=== PATIENT | male | born 1940 | race Caucasian/White ===

== ENCOUNTER → 2020-07-27 11:48 | Outpatient (CLI) | payer OTHER, SELFPAY ==
[2020-07-28 00:22] LABS: SARS-CoV-2 RNA PCR Negative
== END ==
PROVIDERS: PCP Internal Medicine; Visit Provider Internal Medicine
DX: R05 Cough (principal); R06.02 Shortness of breath; R09.81 Nasal congestion; R53.1 Weakness; Z20.822 Contact with and (suspected) exposure to COVID-19
CPT/HCPCS: C9803; U0003; U0005

== ENCOUNTER 2023-09-15 09:11 | Outpatient (CLI) | payer OTHER, SELFPAY ==
--- NOTE | 2023-09-15 12:43 | WPDPFTINT ---
PFT Procedure Performed PFT Procedure Performed Spirometry with Pre/Post Bronchodilator Plethysmography (Lung Vol) Diffusing Cap (DLCO) Flow Vol Loop PFT Interpretation Lung volumes were measured with the body plethysmography method. Lung volumes are unremarkable. Spirometry showed diminished expiratory flow rates and a diminished FEV1 to FVC ratio 59%, indicative of obstructive airway disease. Following administration of a bronchodilator there was no significant increase in the expiratory flow rates. The flow-volume loop is consistent with obstructive airway disease. Lung diffusion capacity is within the normal range at 82% predicted. Impression: Mild obstructive airway disease with no response to bronchodilators on this testing. Lung diffusion capacity within the normal range.
== END 2023-09-15 09:12 | disposition home or self-care (01) ==
LOC: ANHPFT 09:13
PROVIDERS: PCP Internal Medicine; Visit Provider Registered Nurse
DX: J44.9 Chronic obstructive pulmonary disease, unspecified (principal); R94.2 Abnormal results of pulmonary function studies
CPT/HCPCS: 94060; 94726; 94729